=== PATIENT | male | born 1965 | race Caucasian/White ===

== ENCOUNTER → 2022-09-30 16:55 | Outpatient (CLI) | payer OTHER, SELFPAY ==
--- NOTE | 2022-09-30 16:57 | DI.MRI.S_ITS ---
PROCEDURE: MR ELBOW LT WO/W CON INDICATIONS: Left elbow pain TECHNIQUE: Noncontrast coronal proton density fast spin echo and T2 fast spin echo with fat saturation, coronal T1 spin echo with fat saturation, axial and sagittal T1 spin echo and T2 fast spin echo with fat saturation through the elbow. Post-contrast coronal, axial, and sagittal T1 spin echo with fat saturation through the elbow. COMPARISON: None. FINDINGS: Image quality: Excellent, apart from mild wrap artifact on sagittal images and coronal postcontrast images. Lateral structures: The lateral ulnar collateral ligament and radial collateral ligament both appear intact. The overlying common extensor tendon demonstrates mild tendinosis. Medial structures: The ulnar collateral ligament appears intact. The overlying common flexor tendon demonstrates tendinosis and suspected low-grade intrasubstance tearing at the origin. The ulnar nerve appears normal in size and signal within the cubital tunnel. Anterior structures: The biceps and brachialis tendons both appear intact as they insert onto the proximal radius and ulna, respectively. No bicipitoradial bursal fluid. The median and radial neurovascular bundles appear normal; no focal muscle atrophy to suggest nerve impingement. Posterior structures: The conjoint triceps tendon from the long and lateral heads appears intact. The medial head of the triceps tendon also appears normal, with direct muscle insertion onto the olecranon. No olecranon bursal fluid. Bone and cartilage: No suspicious osseous enhancement. Mild subchondral cystic changes in the radial head and capitellum are most likely degenerative. There is overlying partial-thickness cartilage loss. No bone marrow contusions or fractures. No osteochondral injuries. No suspicious enhancing soft tissue mass. Mild subcutaneous soft tissue edema adjacent to the medial epicondyle. IMPRESSION: 1. Low-grade partial intrasubstance tearing of the common flexor tendon at the origin superimposed on chronic tendinosis. 2. Mild common extensor tendinosis. 3. Mild degenerative changes in the radiocapitellar compartment. Approved by: Arturo Carrasco M.D. on 10/01/2022 at 8:53
== END ==
PROVIDERS: PCP Radiology Diagnostic Radiology; Referring Provider Family Medicine; Visit Provider Family Medicine
DX: S46.292A Other injury of muscle, fascia and tendon of other parts of biceps, left arm, initial encounter (principal); S56.212A Strain of other flexor muscle, fascia and tendon at forearm level, left arm, initial encounter; X58.XXXA Exposure to other specified factors, initial encounter
CPT/HCPCS: 73223; A9579